=== PATIENT | female | born 1995 | race Caucasian/White ===

== ENCOUNTER 2018-02-20 09:53 | Emergency (ER) | payer BC ==
[~2018-02-20] VITALS: Ht 170.2 cm; Wt 127.0 kg
[~2018-02-20 09:53] MED LIST: BIRTH CONTROL; FLOMAX0.4 MG PO; HYDROCODON-ACE1 EAC7 PO; IBUPROFEN 600600 M1 PO; NORCO 5-325 TA1 EACH PO; PHENAZOPYRIDIN200 M2 PO; ZOFRAN ODT4 MG PO
[2018-02-20 10:25] LABS: URINE BLOOD 3+ (Negative); URINE CLARITY CLOUDY; URINE COLOR BROWN; URINE GLUCOSE-RANDOM NEGATIVE (Negative); URINE KETONES 2+ (Negative); URINE LEUKOCYTES-REFLEX TRACE (Negative); URINE NITRITE-REFLEX NEGATIVE (Negative); URINE PROTEIN 2+ (Negative); URINE SPECIFIC GRAVITY >= 1.030 (1.005-1.030)
[2018-02-20 10:26] LABS: ABSOLUTE BASOPHILS 0.1 thou/uL (0.0-0.2); ABSOLUTE EOSINOPHILS 0.2 thou/uL (0.0-0.7); ABSOLUTE LYMPHOCYTES 2.4 thou/uL (0.8-5.3); ABSOLUTE MONOCYTES 0.4 thou/uL (0.0-1.2); ABSOLUTE NEUTROPHILS 3.2 thou/uL (1.6-8.1); BASOPHILS 1.1 %; EOSINOPHILS 2.8 %; HEMATOCRIT 39.6 % (37.0-47.0); HEMOGLOBIN 13.1 gm/dL (12.0-15.0); LYMPHOCYTES 38.3 %; MCH 28.5 pg (26.0-34.0); MCV 86.3 fL (80.0-100.0); MONOCYTES 6.8 %; MPV 10.4 fl. (7.2-11.1); NUCLEATED RBCS 0 /100WBC; PLATELET COUNT* 187 thou/uL (150-400); RBC 4.58 mil/uL (4.20-5.00); RDW-CV 14.7 % (10.5-14.5); WBC 6.3 thou/uL (4.0-11.0)
[2018-02-20 10:28] LABS: ICTOTEST (BILI CONFIRMATORY) Negative (Negative); URINE BILIRUBIN 2+ (Negative)
[2018-02-20 10:30] LABS: SQUAMOUS 0-3 Few /LPF (0-3)
[2018-02-20 10:31] LABS: BACTERIA-REFLEX 1-9 Few /HPF (None Seen); CASTS None Seen /LPF (None Seen); CRYSTALS None Seen /LPF (None Seen); MUCUS 0-3 Light strn/LPF (None Seen); URINE WBC-REFLEX 6-15 Few /HPF (0-5)
[2018-02-20 10:33] LABS: CALCIUM 9.3 mg/dL (8.5-10.1); CREATININE 0.8 mg/dL (0.6-1.3); POTASSIUM 3.7 mmol/L (3.5-5.1)
[2018-02-20 10:38] LABS: ALBUMIN 3.8 g/dL (3.4-5.0); TOTAL BILIRUBIN 0.6 mg/dL (<0.1-1.0); TOTAL PROTEIN 7.1 g/dL (6.4-8.2)
[2018-02-20] MEDS ORDERED: BACTRIM DS TAB1 EACH PO (12:14)
[2018-02-20] MEDS ORDERED: HYDROCODONE-AP1 EAC6 PO (12:14)
[2018-02-20] MEDS ORDERED: PHENERGAN 25 MG25 M1 PO (12:14)
[2018-02-20 12:23] VITALS: BP 118/76
== END 2018-02-20 12:24 | disposition home or self-care (01) ==
LOC: M.ERS 09:53
PROVIDERS: Physician Assistant
DX: E66.01 Morbid (severe) obesity due to excess calories (principal); N20.0 Calculus of kidney; Z68.41 Body mass index [BMI] 40.0-44.9, adult

== ENCOUNTER 2018-02-22 13:37 | Inpatient (IN) | payer BC ==
[~2018-02-22] VITALS: Ht 170.2 cm; Wt 124.7 kg
[~2018-02-22 13:37] MED LIST changes: +BACTRIM DS TAB1 EACH PO; +HYDROCODONE-AP1 EAC6 PO; +PHENERGAN 25 MG25 M1 PO
[2018-02-22 13:43] VITALS: BP 150/99
[2018-02-22 13:53] LABS: URINE BLOOD 3+ (Negative); URINE CLARITY CLOUDY; URINE GLUCOSE-RANDOM NEGATIVE (Negative); URINE LEUKOCYTES-REFLEX TRACE (Negative); URINE NITRITE-REFLEX NEGATIVE (Negative); URINE PROTEIN 2+ (Negative); URINE SPECIFIC GRAVITY >= 1.030 (1.005-1.030)
[2018-02-22 13:59] LABS: URINE COLOR YELLOW
[2018-02-22 14:02] LABS: ICTOTEST (BILI CONFIRMATORY) Positive (Negative); URINE BILIRUBIN 2+ (Negative); URINE KETONES 3+ (Negative); URINE REDUCING SUBSTANCE NEGATIVE (Negative)
[2018-02-22 14:06] LABS: SQUAMOUS >10 Many /LPF (0-3); URINE RBC >20 Many /HPF (0-2); URINE WBC-REFLEX 6-15 Few /HPF (0-5)
[2018-02-22 14:07] LABS: BACTERIA-REFLEX >30 Many /HPF (None Seen); CASTS None Seen /LPF (None Seen); CRYSTALS None Seen /LPF (None Seen)
[2018-02-22 14:14] LABS: ABSOLUTE BASOPHILS 0.1 thou/uL (0.0-0.2); ABSOLUTE EOSINOPHILS 0.1 thou/uL (0.0-0.7); ABSOLUTE LYMPHOCYTES 1.3 thou/uL (0.8-5.3); ABSOLUTE MONOCYTES 0.4 thou/uL (0.0-1.2); ABSOLUTE NEUTROPHILS 4.7 thou/uL (1.6-8.1); BASOPHILS 1.2 %; EOSINOPHILS 1.2 %; HEMATOCRIT 37.4 % (37.0-47.0); HEMOGLOBIN 12.6 gm/dL (12.0-15.0); LYMPHOCYTES 20.1 %; MCHC 33.7 g/dL (28.0-37.0); MONOCYTES 6.6 %; MPV 10.4 fl. (7.2-11.1); NUCLEATED RBCS 0 /100WBC; PLATELET COUNT* 176 thou/uL (150-400); POLYS 70.9 %; RBC 4.35 mil/uL (4.20-5.00); RDW-CV 14.3 % (10.5-14.5); WBC 6.7 thou/uL (4.0-11.0)
[2018-02-22 14:23] LABS: CALCIUM 9.2 mg/dL (8.5-10.1); CREATININE 1.1 mg/dL (0.6-1.3); POTASSIUM 4.1 mmol/L (3.5-5.1)
[2018-02-22 14:27] LABS: ALBUMIN 3.6 g/dL (3.4-5.0); TOTAL BILIRUBIN 1.7 mg/dL (<0.1-1.0)
[2018-02-22] MEDS ORDERED: KEFLEX250 MG/5 M PO (14:48)
[2018-02-22] MEDS ORDERED: FLOMAX0.4 MG PO (14:48)
[2018-02-22 16:00] VITALS: BP 145/85
--- NOTE | 2018-02-22 16:13 | NUR ---
REPORT CALLED TO VIRIDIANA ON JSSI. PT TAKEN TO ROOM VIA CART
[2018-02-22 16:29] VITALS: BP 145/85
--- NOTE | 2018-02-22 18:54 | NUR ---
PATIENT ARRIVED TO UNIT AT 1624. ALERT AND ORIENTED X4. UP AD DRE IN ROOM. IV PATENT AND INFUSING. DENIES PAIN AND NAUSEA. TOLERATING DIET. PATIENT HAS BEEN ORIENTED TO ROOM. VSS ON ROOM AIR. HOURLY ROUNDS HAVE BEEN MAINTAINED SINCE ARRIVING ON UNIT. CALL LIGHT IS WITHIN REACH. NURSING WILL CONTINUE TO MONITOR.
[2018-02-22 20:00] VITALS: BP 134/80
[2018-02-23 03:54] LABS: HEMATOCRIT 32.5 % (37.0-47.0); HEMOGLOBIN 10.9 gm/dL (12.0-15.0); MCH 29.1 pg (26.0-34.0); MCHC 33.4 g/dL (28.0-37.0); MCV 87.1 fL (80.0-100.0); MPV 10.8 fl. (7.2-11.1); RBC 3.73 mil/uL (4.20-5.00); RDW-CV 14.7 % (10.5-14.5)
[2018-02-23 04:34] LABS: CALCIUM 8.4 mg/dL (8.5-10.1); CREATININE 0.9 mg/dL (0.6-1.3); POTASSIUM 4.2 mmol/L (3.5-5.1)
--- NOTE | 2018-02-23 05:26 | NUR ---
PATIENT REMAINS ALERT AND ORIENTED X4 THROUGHOUT SHIFT. VITAL SIGNS STABLE ON ROOM AIR. IV PATENT IN THE LEFT HAND INFUSING AT 150 ML/HR. TRANSFERS AD DRE TO THE RESTROOM. REPOSITIONING SELF IN BED. MAINTAINED NPO STATUS SINCE MIDNIGHT. PAIN MANAGED WITH PO MEDICATION PER ORDERS. DENIES NAUSEA THROUGHOUT SHIFT. HOURLY ROUNDING COMPLETE. RESTING COMFORTABLY THROUGHOUT NIGHT. BED IN LOW POSITION. CALL LIGHT WITHIN REACH. NURSING WILL CONTINUE TO MONITOR.
[2018-02-23 08:30] VITALS: BP 121/84; BP 153/95
[2018-02-23 09:01] LABS: DIRECT BILIRUBIN 0.3 mg/dL (<0.1-0.3); TOTAL BILIRUBIN 0.6 mg/dL (<0.1-1.0)
[2018-02-23 16:00] VITALS: BP 143/85
[2018-02-23 20:30] VITALS: BP 140/87
--- NOTE | 2018-02-23 21:23 | NUR ---
ASSUMED CARES OF PT AT 0700. PT IN BED, BED IN LOW LOCKED POSITION, CALL BUTTON AND PERSONAL ITEMS IN PT REACH. PT UP INDEPENDENTLY, STRONG/STURDY GAIT. PT A&O X4, HRRR PER AUSCULTATION, LCTAB, AFEBRILE, PERRLA. SCATTERED BRUISING, SKIN INTACT. LEFT HAND IV PATENT TO FLUIDS, SEE MAR. VSS ON RA, OCC. HYPERTENSIVE. STRAIN URINE ALL SHIFT. HOURLY ROUNDING COMPLETED. PT NPO AFTER MIDNIGHT FOR POSSIBLE URETER STENT PLACEMENT PER UROLOGY TOMORROW IF STONE DOES NOT PASS BEFORE. ABT THERAPY TOLERATED FOR UTI. ABD SOFT PER PALPATATION. HX OF GASTRIC SLEEVE RECENTLY. PAIN IN LEFT FLANK SOMEWHAT CONTROLLED THIS SHIFT, OCC. NAUSEA REPORTED BY PT. HOURLY ROUNDING COMPLETED. REPORT TO BRICK CLEANER FOR CONTINUED CARES. PT STABLE AT SHIFT CHANGE.
[2018-02-24 03:58] LABS: HEMATOCRIT 34.4 % (37.0-47.0); HEMOGLOBIN 11.5 gm/dL (12.0-15.0); MCH 28.8 pg (26.0-34.0); MCHC 33.4 g/dL (28.0-37.0); MCV 86.3 fL (80.0-100.0); MPV 10.7 fl. (7.2-11.1); RBC 3.99 mil/uL (4.20-5.00); RDW-CV 14.2 % (10.5-14.5); WBC 5.2 thou/uL (4.0-11.0)
[2018-02-24 04:17] LABS: CALCIUM 8.7 mg/dL (8.5-10.1); CREATININE 0.8 mg/dL (0.6-1.3); MAGNESIUM 1.9 mg/dL (1.8-2.4); POTASSIUM 4.1 mmol/L (3.5-5.1); TOTAL BILIRUBIN 0.6 mg/dL (<0.1-1.0); TOTAL PROTEIN 5.7 g/dL (6.4-8.2)
[2018-02-24 04:25] VITALS: BP 140/87
--- NOTE | 2018-02-24 07:41 | NUR ---
PATIENT HAS SLEPT WELL THROUGHOUT THE NIGHT WITHOUT ANY ISSUES. VSS ON RA. NO C/O PAIN DURING THE SHIFT. NO NAUSEA OR VOMITING. PATIENT IS UP AD-DRE AND STEADY. PATIENT HAS REMAINED NPO SINCE MIDNIGHT. URINE STRAINED AND NO STONES RETRIEVED. IV IN LEFT HAND- NS @ 150ML/HR. PATIENT INSTRUCTED TO USE CALL LIGHT WHEN NEEDING ASSISTANCE. HOURLY ROUNDS MADE. WILL CONTINUE WITH PLAN OF CARE AND NURSING TO MONITOR.
[2018-02-24 08:10] VITALS: BP 155/90
[2018-02-24 11:27] VITALS: BP 155/90
[2018-02-24 12:02] VITALS: BP 155/90
--- NOTE | 2018-02-24 12:03 | NUR ---
PATIENT LEFT UNIT AMBULATORY WITH NURSING STAFF AT 1150. IV DC'D. EDUCATED PATIENT AND ON DISCHARGE INSTRUCTIONS AND NEW MED SCRIPTS. PATIENT AND VERBALIZED UNDERSTANDING. ALL BELONGINGS LEFT WITH PATIENT.
== END 2018-02-24 12:05 | disposition home or self-care (01) | DRG 690 ==
LOC: M.ERS 13:37 → M.TBA-ER 15:23 → M.ORTHSURG 15:23
PROVIDERS: Nurse Practitioner Family; ADMIT Internal Medicine
DX: N13.6 Pyonephrosis (principal); Z68.41 Body mass index [BMI] 40.0-44.9, adult; E66.01 Morbid (severe) obesity due to excess calories; R74.0 Nonspecific elevation of levels of transaminase and lactic acid dehydrogenase [LDH]; E80.6 Other disorders of bilirubin metabolism; Z87.442 Personal history of urinary calculi; Z98.84 Bariatric surgery status; Z79.2 Long term (current) use of antibiotics; Z79.899 Other long term (current) drug therapy

== ENCOUNTER 2018-03-21 06:17 | Emergency (ER) | payer BC ==
[~2018-03-21] VITALS: Ht 170.2 cm; Wt 122.5 kg
[~2018-03-21 06:17] MED LIST changes: +KEFLEX250 MG/5 M PO
[2018-03-21] MEDS ORDERED: NUVARING VAGIN1 EACH VAG (06:23)
[2018-03-21] MEDS ORDERED: TRAMADOL 50 MG50 MG PO (06:23)
[2018-03-21 06:49] LABS: URINE BLOOD 2+ (Negative); URINE CLARITY CLEAR; URINE COLOR YELLOW; URINE GLUCOSE-RANDOM NEGATIVE (Negative); URINE KETONES 2+ (Negative); URINE LEUKOCYTES-REFLEX NEGATIVE (Negative); URINE NITRITE-REFLEX NEGATIVE (Negative); URINE PROTEIN 2+ (Negative); URINE SPECIFIC GRAVITY >= 1.030 (1.005-1.030)
[2018-03-21 06:50] LABS: ICTOTEST (BILI CONFIRMATORY) Negative (Negative); URINE BILIRUBIN 1+ (Negative)
[2018-03-21 06:57] LABS: BACTERIA-REFLEX 1-9 Few /HPF (None Seen); CASTS None Seen /LPF (None Seen); CRYSTALS None Seen /LPF (None Seen); MUCUS None Seen strn/LPF (None Seen); SQUAMOUS 4-10 Moderate /LPF (0-3); URINE WBC-REFLEX 0-5 Rare /HPF (0-5)
[2018-03-21 07:24] LABS: HEMATOCRIT 36.5 % (37.0-47.0); HEMOGLOBIN 12.4 gm/dL (12.0-15.0); MCH 29.3 pg (26.0-34.0); MCHC 33.9 g/dL (28.0-37.0); MCV 86.5 fL (80.0-100.0); MPV 9.8 fl. (7.2-11.1); NUCLEATED RBCS 0 /100WBC; PLATELET COUNT* 142 thou/uL (150-400); RBC 4.22 mil/uL (4.20-5.00); RDW-CV 13.9 % (10.5-14.5); WBC 10.4 thou/uL (4.0-11.0)
[2018-03-21] MEDS ORDERED: ZOFRAN ODT4 MG SUBLING (08:12)
[2018-03-21] MEDS ORDERED: PERCOCET 5-3251 EACH PO (08:12)
[2018-03-21 08:13] LABS: ABSOLUTE LYMPHOCYTES 0.7 thou/uL (0.8-5.3); ABSOLUTE MONOCYTES 0.4 thou/uL (0.0-1.2); ABSOLUTE NEUTROPHILS 9.3 thou/uL (1.6-8.1); PLATELET ESTIMATE ADEQUATE
[2018-03-21 08:26] LABS: ALBUMIN 3.4 g/dL (3.4-5.0); CALCIUM 8.8 mg/dL (8.5-10.1); CREATININE 0.9 mg/dL (0.6-1.3); POTASSIUM 3.8 mmol/L (3.5-5.1); TOTAL BILIRUBIN 0.8 mg/dL (<0.1-1.0); TOTAL PROTEIN 6.4 g/dL (6.4-8.2)
[2018-03-21 08:27] VITALS: BP 131/79
== END 2018-03-21 08:28 | disposition home or self-care (01) ==
LOC: M.ERS 06:17
PROVIDERS: Emergency Medicine; Family Medicine
DX: R10.32 Left lower quadrant pain (principal); E66.01 Morbid (severe) obesity due to excess calories; Z87.442 Personal history of urinary calculi; Z68.41 Body mass index [BMI] 40.0-44.9, adult